=== PATIENT | male | born 1980 | race Caucasian/White ===

== ENCOUNTER 2020-03-11 16:40 | Emergency (ER) | payer MEDICAID, OTHER ==
[~2020-03-11] VITALS: Ht 177.8 cm; Wt 83.9 kg
--- NOTE | 2020-03-11 17:25 | NUR ---
ED Nurse Note: Pt walked into ED for concern of STD. Pt has had unrpotected sex in the past weeka nd has had urinaru dribbling, tenderness and slight selling at tip of penis. Pt is alert and ox4, ambulatroy. No discharge from penis.
[2020-03-11 17:26] VITALS: BP 134/88
[2020-03-11 18:00] LABS: APPEARANCE,URINE CLOUDY; BILIRUBIN, URINE NEGATIVE (NEGATIVE); COLOR,URINE PALE YELLOW; GLUCOSE, URINE (UA) NEGATIVE (NEGATIVE); KETONES,URINE NEGATIVE (NEGATIVE); LEUKOCYTE ESTERASE ,URINE NEGATIVE (NEGATIVE); NITRITE,URINE NEGATIVE (NEGATIVE); PH,URINE 7 (4.5-8.0); PROTEIN,URINE NEGATIVE (NEGATIVE); UROBILINOGEN,URINE NORMAL MG/DL (0.0-1.0)
--- NOTE | 2020-03-11 18:02 | Emergency Room Report ---
History of Present Illness General Chief Complaint: Male Urogenital Problems Source: Patient Present Illness HPI 39 YO male presents to the ED c/o erythema and sensitivity to the tip of the penis x4 days. Patient reports he has been taking a cream prescribed to him by his PCP x2 days with no improvement of his symptoms. Patient reports he did notice onset after having vaginal intercourse. He denies rashes, tenderness, dysuria, sores, swollen tender lymph nodes, abdominal pain, fevers or chills or joint pain. He reports urinary frequency but denies hematuria. He denies penile discharge. He denies pain or tenderness or swelling of the testicles. Allergies: Coded Allergies: No Known Allergies (Unverified , 03/11/20) COVID-19 Screening Contact w/high risk pt: No Recent Travel to affected area: No Experienced COVID-19 symptoms?: No COVID-19 Testing performed SAND ANALYST: No Patient History Past Medical History: none Past Surgical History: none Pertinent Family History: none Reviewed Nursing Documentation: PMH: Agreed; PSxH: Agreed Nursing Documentation-PMH Past Medical History: No Stated History Review of Systems All Other Systems: negative except mentioned in HPI Physical Exam Vital Signs Date Time Temp Pulse Resp B/P (MAP) Pulse Ox O2 Delivery O2 Flow Rate FiO2 03/11/20 16:48 98.1 78 20 130/86 (101) 98 Room Air Sp02 EP Interpretation: reviewed, normal General Appearance: no apparent distress, alert, GCS 15, non-toxic Head: normocephalic, atraumatic Eyes: bilateral eye normal inspection, bilateral eye PERRL ENT: hearing grossly normal, normal voice Neck: full range of motion Respiratory: lungs clear, normal breath sounds, speaking full sentences Cardiovascular #1: regular rate, rhythm Gastrointestinal: normal bowel sounds, non tender, soft, non-distended, no guarding Rectal: deferred Genitourinary: normal inspection, no CVA tenderness, scrotum normal, other - erythema to the tip of the penis, no sores, swelling, d/c, or rashes. no palpable tenderness Musculoskeletal: normal range of motion, gait/station normal, non-tender Neurologic: alert, motor strength/tone normal, oriented x3, sensory intact, responsive, speech normal Psychiatric: judgement/insight normal Skin: no rash, other - erythema to the tip of the penis, no sores, swelling, d/ c, or rashes. no palpable tenderness Lymphatic: no adenopathy Medical Decision Making PA Attestation Dr. Qureshi is my supervising Physician whom patient management has been discussed with. Diagnostic Impression: Primary Impression: Urethritis ER Course 39 YO male presents to the ED c/o erythema and sensitivity to the tip of the penis x4 days. Patient reports he has been taking a cream prescribed to him by his PCP x2 days with no improvement of his symptoms. Patient reports he did notice onset after having vaginal intercourse. He denies rashes, tenderness, dysuria, sores, swollen tender lymph nodes, abdominal pain, fevers or chills or joint pain. He reports urinary frequency but denies hematuria. He denies penile discharge. He denies pain or tenderness or swelling of the testicles. . Ddx considered but are not limited to UTi , Pyelo, STI, Stone, Cystitis, balanitis,herpes, urethritis just to name a few. Vital signs: are WNL, pt. is afebrile H&PE are most consistent with penile irritation not responding to antifungal cream ORDERS: - UA labs are attached--- many bacteria without increased inflammatory markers. ED INTERVENTIONS: -250mg IM Rocephin -1g Azithromycin PO DISCHARGE: At this time pt. is stable for d/c to home. Will provide printed patient care instructions, and any necessary prescriptions. Care plan and follow up instructions have been discussed with the patient prior to discharge. Labs Test 03/11/20 16:55 Urine Color Pale yellow Urine Appearance Cloudy Urine pH 7 (4.5-8.0) Urine Specific [place] 1.015 (1.005-1.035) Urine Protein Negative (NEGATIVE) Urine Glucose (UA) Negative (NEGATIVE) Urine Ketones Negative (NEGATIVE) Urine Blood Negative (NEGATIVE) Urine Nitrite Negative (NEGATIVE) Urine Bilirubin Negative (NEGATIVE) Urine Urobilinogen Normal MG/DL (0.0-1.0) Urine Leukocyte Esterase Negative (NEGATIVE) Urine RBC 0-2 /HPF (0 - 0) Urine WBC 0-2 /HPF (0 - 0) Urine Squamous Epithelial Cells None /LPF (NONE/OCC) Urine Amorphous Sediment Many /LPF (NONE) Urine Bacteria Many /HPF (NONE) Last Vital Signs Date Time Temp Pulse Resp B/P (MAP) Pulse Ox O2 Delivery O2 Flow Rate FiO2 03/11/20 17:26 98.1 76 21 134/88 99 Room Air Disposition: HOME, SELF-CARE Condition: Stable Referrals: NON PHYSICIAN (PCP) Patient Instructions: Urethritis, Adult Additional Instructions: Take medications as directed. Wait 7 d-10 days before resuming intercourse. All partners should be treated to limit re-infection Follow up with a Primary Care Provider in 3-5 days, even if your symptoms have resolved. Return sooner to ED if new symptoms occur, or current symptoms become worse. - Please note that this Emergency Department Report was dictated using [employer] distribution specialist technology software, occasionally this can lead to erroneous entry secondary to interpretation by the dictation equipment. Chanelle Taylor March 11, 2020 18:02
[2020-03-11] MEDS ORDERED: Azithromycin 250mg tab ORAL ONE (18:30)
[2020-03-11] MEDS ORDERED: Lidocaine 1% MPF 10mg/ml 5ml INJ ONE (18:30)
[2020-03-11 19:25] VITALS: BP 129/80
--- NOTE | 2020-03-11 19:25 | NUR ---
ER DISCHARGE NOTE: Patient is cleared to be discharged per ERMD, pt is aox4, on room air, with stable vital signs. pt was given dc instructions, pt was able to verbalize understanding, pt id band removed. pt is able to ambulate with steady gait. pt took all belongings.
== END 2020-03-11 19:25 | disposition home or self-care (01) ==
LOC: EMR 17:00
DX: N34.2 Other urethritis (principal)
CPT/HCPCS: 81001; 87086; 96372; 96374; J0696; Q0144; Z7502; 99284